=== PATIENT | female | born 1965 | race Asian ===

== ENCOUNTER → 2020-08-07 | Emergency (ER) | payer MEDICAID, OTHER ==
[~2020-08-07] VITALS: Ht 160 cm; Wt 57.2 kg
[2020-08-07 17:09] VITALS: BP 122/75
== END | disposition home or self-care (01) ==
LOC: ER 13:37
DX: S00.83XA Contusion of other part of head, initial encounter (principal); J34.2 Deviated nasal septum; R04.0 Epistaxis; X58.XXXA Exposure to other specified factors, initial encounter; Y93.89 Activity, other specified; Y92.89 Other specified places as the place of occurrence of the external cause; Y99.8 Other external cause status
CPT/HCPCS: 70450; 70486